=== PATIENT | female | born 1955 | race Caucasian/White ===

== ENCOUNTER → 2017-12-06 | Outpatient (CLI) | payer MEDICAID ==
[~2017-12-06] MED LIST: CARB100O PO; CARB100S PO; CYAN1000P IM; D 101000 PO; ESTR0.62 PV; ESTR0.62 VAGINAL; FOLI1TAB PO; FOLI1TAB6 PO; HYDR-3133 PO; MAGICADU2 SWISH-SWAL; MMW SS; MORP1SOL PF; PANT40TA3 PO; PERC5TAB12 PO; PROT40TA PO; SENN8.6T36 PO; SENN8.6T81 PO; SPIR25 PO; SPIR25TA PO; VITATAB25 PO
[2017-12-06 11:39] LABS: AUTOMATED NEUTROPHIL # 2.4 TH/MM3 (1.8-7.7); BASOPHIL % 0.8 % (0.0-2.0); EOSINOPHIL % 0.9 % (0.0-4.0); HEMATOCRIT 37.9 % (35.0-46.0); HEMOGLOBIN 12.9 GM/DL (11.6-15.3); LYMPH % 23.2 % (9.0-44.0); LYMPHOCYTE # 0.8 TH/MM3 (1.0-4.8); MEAN CELL VOLUME 95.1 FL (80.0-100.0); MEAN CORPUSCULAR HEMOGLOBIN 32.3 PG (27.0-34.0); MEAN PLATELET VOLUME 6.7 FL (7.0-11.0); MONO % 10.2 % (0.0-8.0); MONOCYTE # 0.4 TH/MM3 (0-0.9); NEUT % 64.9 % (16.0-70.0); PLATELET COUNT 186 TH/MM3 (150-450); RED BLOOD COUNT 3.98 MIL/MM3 (4.00-5.30); RED CELL DISTRIBUTION WIDTH 11.7 % (11.6-17.2); WHITE BLOOD COUNT 3.6 TH/MM3 (4.0-11.0)
--- NOTE | 2017-12-07 09:01 | EKG ---
Date Performed: 12/06/2017 Time Performed: 12:11:10 PTAGE: 62 years EKG: Sinus rhythm INCOMPLETE RIGHT BUNDLE BRANCH BLOCK BORDERLINE ECG PREVIOUS TRACING : 07/05/2016 11.17 Since the prior tracing, there has been no significant bonilla DOCTOR: Cristal Douglass Interpretating Date/Time 12/07/2017 08:59:51
== END ==
LOC: PHPRE 11:08
PROVIDERS: ATTEND Orthopaedic Surgery
DX: Z01.810 Encounter for preprocedural cardiovascular examination (principal); Z01.812 Encounter for preprocedural laboratory examination; R94.31 Abnormal electrocardiogram [ECG] [EKG]
CPT/HCPCS: 36415; 85025; 93005

== ENCOUNTER → 2017-12-14 | Day surgery (SDC) | payer MEDICAID ==
[~2017-12-14] VITALS: Ht 162.6 cm; Wt 49.0 kg
[~2017-12-14] MED LIST changes: +*Lactated Ringer's INJ 1,000 ML ONE; +*MEPERIDINE 25 MG INJ VIAL PERIprocedural Use ONLY ONE; +BUPIVACAINE/EPINEPHRINE 0.25% 50 ML VIAL ONE; -CARB100S PO; +CHLORHEXIDINE GLUCONATE 2 % 1 PACK (2 CLOTHS) TOPICAL PRN; +CHLORHEXIDINE GLUCONATE 4% SOLN 120 ML BTL TOPICAL SCH; -ESTR0.62 PV; -FOLI1TAB PO; +LACTATED RINGER'S 1000 ML INJ 1,000 ML IV ONE; +LACTATED RINGER'S 1000 ML IV PRN; +LIDOCAINE HCL 1% PF 5 ML SYRINGE OTHER ONE; +METOPROLOL TARTRATE 25 MG TAB PO PRN; +MIDAZOLAM HCL 2 MG/2 ML VIAL ONE; -MMW SS; +MORPHINE SULFATE 8 MG/ML INJ ONE; +ONDANSETRON HCL 4 MG/2 ML VIAL IV PUSH ONE; +PHENYLEPH/NS 1000 MCG/10 ML SYR IV ONE; +POVIDONE IODINE 5% (ANTISEPSIS KIT) 4 APPLICATIONS EACH NARE PRN; +PROPOFOL 200 MG/20 ML AMP IV ONE; -PROT40TA PO; +ROCURONIUM INJ 50 MG/5 ML SYRINGE IV PUSH ONE; -SENN8.6T36 PO; +SODIUM CHLORID 0.9% 500 ML IV PRN; -SPIR25TA PO; +SUCCINYLCHOLINE CHLORIDE 200 MG/10 ML VIAL IV ONE; -VITATAB25 PO; +ePHEDrine/NS 25 MG/5 ML SYRINGE IV ONE; +fentaNYL CITRATE 250 MCG/5 ML AMP ONE
[2017-12-14 10:49] VITALS: PULSE 57
--- NOTE | 2017-12-14 10:55 | MP ---
cc: Shiva Hilario MD DATE OF OPERATION: 12/14/2017 SURGEON: Shiva Hilario MD PREOPERATIVE DIAGNOSIS: Malunion of right wrist fracture. POSTOPERATIVE DIAGNOSIS: Malunion of right wrist fracture. PROCEDURE: Darrach procedure right wrist/excision of distal ulna. DETAILS OF PROCEDURE: The patient was placed on the operating room stretcher in a supine position and the right wrist and hand were fully prepped and draped in the usual sterile fashion. A time-out was called and the patient's name, procedure, location, etc., were fully verified and confirmed. An Esmarch bandage was applied to the right upper extremity and a pneumatic tourniquet was inflated at the level of the arm to 250. A curvilinear incision was made over the distal ulna for approximately 1 inch in length. The wound was taken down through the subcutaneous tissues and small bleeding points were electrocauterized. Dissection was carried down to the underlying tendon sheath and the capsulotomy was performed with a 15 blade. Periosteal elevator was used to clear the surface of the distal ulna. At about the sigmoid notch an osteotomy was performed utilizing a power saw, removing the distal ulna. Care was taken to avoid stretching or injuries to the neurovascular structures and also tendons. The edges were then smoothed and an irrigation performed. The capsulotomy and soft tissues were reapproximated with interrupted sutures of #3 Vicryl. The skin edges were then approximated with interrupted sutures of 4-0 nylon. Xeroform gauze was applied, followed by application of a bulky dressing. The tourniquet was deflated and examination of the fingers revealed adequate return of circulation. Tourniquet time was less than 22 minutes. Estimated blood loss was nil. Sponge counts and needle counts were reported correct x 2. The patient was transferred to the recovery room in satisfactory condition. Shiva Hilario MD [facility] , 10:45 AM , 10:54 AM
[2017-12-14 11:45] VITALS: PULSE 63; TEMP 98
[2017-12-14 12:20] VITALS: BP 108/65; PULSE 61; RESP 14; O2SAT 100
== END | disposition home or self-care (01) ==
LOC: PHSDC 07:47
PROVIDERS: ATTEND Orthopaedic Surgery
DX: S52.531P Colles' fracture of right radius, subsequent encounter for closed fracture with malunion (principal)
CPT/HCPCS: 01830; 25240; J2175; J2250; J2270; J2370; J2405; J3010; J7120; J0330

== ENCOUNTER → 2018-01-24 | Outpatient (CLI) | payer MEDICAID ==
[~2018-01-24] MED LIST changes: -*Lactated Ringer's INJ 1,000 ML ONE; -*MEPERIDINE 25 MG INJ VIAL PERIprocedural Use ONLY ONE; -BUPIVACAINE/EPINEPHRINE 0.25% 50 ML VIAL ONE; -CHLORHEXIDINE GLUCONATE 2 % 1 PACK (2 CLOTHS) TOPICAL PRN; -CHLORHEXIDINE GLUCONATE 4% SOLN 120 ML BTL TOPICAL SCH; -LACTATED RINGER'S 1000 ML INJ 1,000 ML IV ONE; -LACTATED RINGER'S 1000 ML IV PRN; -LIDOCAINE HCL 1% PF 5 ML SYRINGE OTHER ONE; -METOPROLOL TARTRATE 25 MG TAB PO PRN; -MIDAZOLAM HCL 2 MG/2 ML VIAL ONE; -MORPHINE SULFATE 8 MG/ML INJ ONE; -ONDANSETRON HCL 4 MG/2 ML VIAL IV PUSH ONE; -PHENYLEPH/NS 1000 MCG/10 ML SYR IV ONE; -POVIDONE IODINE 5% (ANTISEPSIS KIT) 4 APPLICATIONS EACH NARE PRN; -PROPOFOL 200 MG/20 ML AMP IV ONE; -ROCURONIUM INJ 50 MG/5 ML SYRINGE IV PUSH ONE; -SODIUM CHLORID 0.9% 500 ML IV PRN; -SUCCINYLCHOLINE CHLORIDE 200 MG/10 ML VIAL IV ONE; -ePHEDrine/NS 25 MG/5 ML SYRINGE IV ONE; -fentaNYL CITRATE 250 MCG/5 ML AMP ONE
[2018-01-24 12:24] LABS: AUTOMATED NEUTROPHIL # 3.1 TH/MM3 (1.8-7.7); BASOPHIL % 0.9 % (0.0-2.0); EOSINOPHIL % 0.7 % (0.0-4.0); HEMATOCRIT 40.8 % (35.0-46.0); HEMOGLOBIN 13.6 GM/DL (11.6-15.3); LYMPH % 21.6 % (9.0-44.0); MEAN CELL VOLUME 95.4 FL (80.0-100.0); MEAN CORPUSCULAR HEMOGLOBIN 31.8 PG (27.0-34.0); MEAN CORPUSCULAR HGB CONC 33.3 % (32.0-36.0); MEAN PLATELET VOLUME 6.9 FL (7.0-11.0); MONO % 8.8 % (0.0-8.0); MONOCYTE # 0.4 TH/MM3 (0-0.9); PLATELET COUNT 214 TH/MM3 (150-450); RED BLOOD COUNT 4.27 MIL/MM3 (4.00-5.30); RED CELL DISTRIBUTION WIDTH 11.7 % (11.6-17.2); WHITE BLOOD COUNT 4.5 TH/MM3 (4.0-11.0)
== END ==
LOC: PHPRE 11:35
PROVIDERS: ATTEND Orthopaedic Surgery
DX: Z01.810 Encounter for preprocedural cardiovascular examination (principal); Z01.812 Encounter for preprocedural laboratory examination; S83.241A Other tear of medial meniscus, current injury, right knee, initial encounter; X58.XXXA Exposure to other specified factors, initial encounter
CPT/HCPCS: 36415; 85025

== ENCOUNTER → 2018-02-01 | Day surgery (SDC) | payer MEDICAID ==
[~2018-02-01] VITALS: Ht 165.1 cm; Wt 48.0 kg
[~2018-02-01] MED LIST changes: +CHLORHEXIDINE GLUCONATE 2 % 1 PACK (2 CLOTHS) TOPICAL PRN; +CHLORHEXIDINE GLUCONATE 4% SOLN 120 ML BTL TOPICAL SCH; +FAMOTIDINE 20 MG/2 ML VIAL ONE; +INSULIN HUMAN REGULAR 1,000 UNITS/10 ML VIAL SQ PRN; +LACTATED RINGER'S 1000 ML IV PRN; +LIDOCAINE 1%/EPINEPHrine 1:100,000 SOLN 20 ML VIAL ONE; +METOPROLOL TARTRATE 25 MG TAB PO PRN; +MIDAZOLAM HCL 2 MG/2 ML VIAL ONE; -PERC5TAB12 PO; +POVIDONE IODINE 5% (ANTISEPSIS KIT) 4 APPLICATIONS EACH NARE PRN; +SODIUM CHLORID 0.9% 500 ML IV PRN; +TRIAMCINOLONE ACETONIDE 40 MG/ML VIAL ONE
[2018-02-01 15:10] VITALS: BP 95/54; PULSE 56; RESP 16; TEMP 97.6; O2SAT 98
== END | disposition home or self-care (01) ==
LOC: PHSDC 07:48
PROVIDERS: ATTEND Orthopaedic Surgery
DX: M17.11 Unilateral primary osteoarthritis, right knee (principal); Z53.8 Procedure and treatment not carried out for other reasons; I49.9 Cardiac arrhythmia, unspecified
CPT/HCPCS: 29881; J2250; J3010; J7120; 99211; G0463; J3301